=== PATIENT | male | born 1955 | race Caucasian/White ===

== ENCOUNTER 2022-04-22 14:11 | Emergency (ER) | payer BC ==
[2022-04-22 15:10] LABS: Absolute Lymphocytes (CBC) 3.4 K/uL (0.7-4.9); Hematocrit 48.4 % (39.6-49.0); Lymphocytes % 34.7 % (15.3-44.8); MCV 79.9 fL (80-100); MPV 8.6 fL (7.6-11.3); RBC Red Blood Cell Count 6.06 M/uL (4.33-5.43)
[2022-04-22 15:24] LABS: Potassium 4.4 mmol/L (3.5-5.1); Troponin High Sensitivity 5.5 pg/mL (<58.9)
--- NOTE | 2022-04-22 16:16 | RAD REPORT ---
EXAM DESCRIPTION: Nelly Single View04/22/2022 4:04 pm CLINICAL HISTORY: Palpitations COMPARISON: none FINDINGS: The lungs appear clear of acute infiltrate. The heart is normal size IMPRESSION: No acute abnormalities displayed
--- NOTE | 2022-04-22 17:47 | RAD REPORT ---
EXAM DESCRIPTION: CT - Head Brain Wo Cont - 04/22/2022 5:39 pm CLINICAL HISTORY: aphasia COMPARISON: None TECHNIQUE: Computed axial tomography of the head was obtained. IV contrast was not requested. All CT scans are performed using dose optimization technique as appropriate and may include automated exposure control or mA/KV adjustment according to patient size. FINDINGS: An intracranial bleed is not seen . The ventricles are normal in caliber. No extra-axial fluid collection is noted. Moderate to lower area of low density is present within predominantly the left occipital lobe white m atter. This extends into the left temporal lobe and left internal capsule. Shift of midline structure s 2 millimeters towards the right. Fluid within the sinuses/ mastoids is not seen. IMPRESSION: Moderate to large low-density area within the the white-matter left cerebrum. The patien t most likely has mass with surrounding vasogenic edema. It is recommended that the patient have an M RI with contrast for further evaluation
[2022-04-22] MEDS ORDERED: LEVETIRACETAM 500 MG/5 ML VIAL IV ONE (18:18)
[2022-04-22] MEDS ORDERED: NA CHLORIDE 0.9% 100 ML ONE (18:19)
[2022-04-22] MEDS ORDERED: dexAMETHasone 10 MG/ML VIAL ONE (18:19)
--- NOTE | 2022-04-22 18:25 | EDPHYS ---
Physician Documentation [facility] Name: Juan Paris Age: 66 yrs Sex: Male : 1955 Arrival Date: 04/22/2022 Time: 14:14 Bed 6 Private MD: ED Physician Roger Carreno HPI: 04/22 18:26 This 66 yrs old Male presents to ER via Ambulatory with complaints of S/S of Possible kdr Stroke. 18:26 The patient's problem is reported as . kdr 18:33 Onset: The symptoms/episode began/occurred Patient has had intermittent and transient kdr expressive aphasia for the past couple of months. Over the last several days the patient states that he has had difficulty expressing himself and today when he was bringing this to his 's attention he also noted that he had been unable to find words or understand words that he was reading. When the heard this information she brought the patient directly to the ED.. 18:39 Duration: The episodes are intermittent. Context: the episode(s) was witnessed, by kdr family, , occurred at home, occurred while the patient was at rest. The symptoms are alleviated by nothing. The symptoms are aggravated by nothing. Associated signs and symptoms: The patient has no apparent associated signs or symptoms. Severity of symptoms: At their worst the symptoms were mild moderate just prior to arrival, in the emergency department the symptoms have improved mildly, Patient was able to slowly read text correctly but it took him a few seconds and at times he kind of stumbled over the words. Patient's baseline: Neuro: alert and fully oriented, Motor: no deficits, Ambulation: walks without assistance, Speech: normal, normal for age, The patient has a previous history of Palpitations. The patient has not experienced similar symptoms in the past. The patient has not recently seen a physician. Historical: - Allergies: 14:25 Rocephin; hb - Home Meds: 14:25 Metoprolol Tartrate Oral as needed for Palpitations [Active]; hb - PMHx: 14:25 Sleep apnea; hb - PSHx: 14:25 None; hb - Immunization history:: Adult Immunizations up to date. - Social history:: Smoking status: Patient denies any tobacco usage or history of. ROS: 18:39 Constitutional: Negative for fever, chills, and weight loss, Eyes: Negative for injury, kdr pain, redness, and discharge, ENT: Negative for injury, pain, and discharge, Neck: Negative for injury, pain, and swelling, Cardiovascular: Negative for chest pain, palpitations, and edema, Respiratory: Negative for shortness of breath, cough, wheezing, and pleuritic chest pain, Abdomen/GI: Negative for abdominal pain, nausea, vomiting, diarrhea, and constipation, Back: Negative for injury and pain, : Negative for injury, bleeding, discharge, and swelling, MS/Extremity: Negative for injury and deformity, Skin: Negative for injury, rash, and discoloration, Psych: Negative for depression, anxiety, suicide ideation, homicidal ideation, and hallucinations, Allergy/Immunology: Negative for hives, rash, and allergies, Endocrine: Negative for neck swelling, polydipsia, polyuria, polyphagia, and marked weight changes, Hematologic/Lymphatic: Negative for swollen nodes, abnormal bleeding, and unusual bruising. 18:39 Neuro: Positive for speech changes, Negative for altered mental status, dizziness, gait disturbance, headache, loss of consciousness, numbness, visual changes, weakness, Patient denies double vision. Exam: 18:39 Radiologist reports: Dr. Guzman via complete the report indicates moderate to large kdr left cerebrum mass with 2 mm shift of midline 18:39 Constitutional: This is a well developed, well nourished patient who is awake, alert, and in no acute distress. Head/Face: Normocephalic, atraumatic. Neck: Trachea midline, no thyromegaly or masses palpated, and no cervical lymphadenopathy. Supple, full range of motion without nuchal rigidity, or vertebral point tenderness. No Meningismus. Chest/axilla: Normal chest wall appearance and motion. Nontender with no deformity. No lesions are appreciated. Cardiovascular: Regular rate and rhythm with a normal S1 and S2. No gallops, murmurs, or rubs. Normal PMI, no JVD. No pulse deficits. Respiratory: Lungs have equal breath sounds bilaterally, clear to auscultation and percussion. No rales, rhonchi or wheezes noted. No increased work of breathing, no retractions or nasal flaring. Abdomen/GI: Soft, non-tender, with normal bowel sounds. No distension or tympany. No guarding or rebound. No evidence of tenderness throughout. Back: No spinal tenderness. No costovertebral tenderness. Full range of motion. Skin: Warm, dry with normal turgor. Normal color with no rashes, no lesions, and no evidence of cellulitis. MS/ Extremity: Pulses equal, no cyanosis. Neurovascular intact. Full, normal range of motion. Neuro: Awake and alert, GCS 15, oriented to person, place, time, and situation. Cranial nerves II-XII grossly intact. Motor strength 5/5 in all extremities. Sensory grossly intact. Cerebellar exam normal. Normal gait. Psych: Awake, alert, with orientation to person, place and time. Behavior, mood, and affect are within normal limits. 18:39 Eyes: The patient has slight right eye deviation to the right. He denies double vision.. Vital Signs: 14:21 BP 173 / 92; Pulse 85; Resp 16; Temp 98.3; Pulse Ox 98% on R/A; Weight 127.01 kg; hb Height 6 ft. (182.88 cm); Pain 0/10; 15:55 BP 122 / 85; Pulse 80; Resp 18; Pulse Ox 95% on R/A; ph 17:29 BP 140 / 81; Pulse 79; Resp 18; Pulse Ox 98% on R/A; ph 18:37 BP 154 / 80; Pulse 76; Resp 18; Pulse Ox 98% on R/A; ph 19:22 BP 165 / 98; Pulse 95; Resp 16; Pulse Ox 100% on R/A; jb4 14:21 Body Mass Index 37.97 (127.01 kg, 182.88 cm) hb NIH Stroke Scale Scores: 14:30 NIHSS Score: 1 ph MDM: 18:24 Patient medically screened. kdr 18:39 Data reviewed: vital signs, nurses notes. Consideration of Admission/Observation kdr Patient was admitted/placed on observation. Escalation of care including admission/observation considered. Patient was transferred to higher level of care with neurology and neuro surgical services available. I discussed the case with Dr. Croft locally (neurologist on-call) he recommended Keppra and Decadron. I discussed the case as well with Dr. Comer at [facility]. He asked that we hold the Keppra at this time. The Keppra was not given. Patient did get the Decadron. Patient remained stable in the ED.. Management of patient was discussed with the following: Mortgage Lender: Dr. Croft. I considered the following discharge prescriptions or medication management in the emergency department Steroids. Test considered but Not performed: EKG: EKG done. 04/22 14:55 Order name: Basic Metabolic Panel; Complete Time: 16:43 ss 04/22 14:55 Order name: CBC with Diff; Complete Time: 16:43 ss 04/22 14:55 Order name: Troponin HS; Complete Time: 16:43 ss 04/22 14:55 Order name: XRAY Chest (1 view); Complete Time: 16:43 ss 04/22 16:42 Order name: CT Head Brain wo Cont; Complete Time: 18:07 kdr 04/22 18:11 Order name: SARS RAPID eb 04/22 14:55 Order name: EKG; Complete Time: 14:56 ss 04/22 14:55 Order name: Cardiac monitoring; Complete Time: 14:56 ss 04/22 14:55 Order name: EKG - Nurse/Tech; Complete Time: 14:56 ss 04/22 14:55 Order name: IV Saline Lock; Complete Time: 14:56 ss 04/22 14:55 Order name: Labs collected and sent; Complete Time: 14:56 ss 04/22 14:55 Order name: O2 Per Protocol; Complete Time: 14:56 ss 04/22 14:55 Order name: O2 Sat Monitoring; Complete Time: 14:56 ss Administered Medications: 18:15 Drug: Decadron - Dexamethasone 10 mg Route: IVP; Site: right antecubital; ph 18:36 Follow up: Response: No adverse reaction ph 18:37 Not Given (Physician Discretion): Keppra (levETIRAcetam) 1000 mg IV at calculated rate ph once Disposition Summary: 04/22/22 18:24 Transfer Ordered Transfer Location: [facility] kdr Reason: Higher level of care kdr Condition: Fair kdr Problem: new kdr Symptoms: are unchanged kdr Accepting Physician: Dr. Comer/Dr. Rodarte(04/22/22 20:44) jb4 Diagnosis - Left cerebral mass kdr - Receptive aphasia kdr Forms: - Medication Reconciliation Form kdr - SBAR form kdr NIH Stroke Scale - NIH Stroke Score Date: 04/22/2022 Time: 14:30 Total Score = 1 1a. Level of Consciousness (LOC) - 0(Alert) 1b. Level of Consciousness (LOC) (Month \T\ Age) - 0(Both) 1c. LOC Commands (Open \T\ Closes Eyes/Case Manager) - 0(Both) 2. Best Gaze (Lateral Gaze Paresis) - 0(Normal) 3. Visual Field Loss - 0(No visual loss) 4. Facial Palsy - 0(Normal) 5a. Left Arm: Motor (10-second hold) - 0(No drift) 5b. Right Arm: Motor (10-second hold) - 0(No drift) 6a. Left Leg: Motor (5-second hold - always test supine) - 0(No drift) 6b. Right Leg: Motor (5-second hold - always test supine) - 0(No drift) 7. Limb Ataxia (finger/nose \T\ heel/reyna - test with eyes open) - 0(Absent) 8. Sensory Loss (pinprick arms/legs/face) - 0(Normal) 9. Best Language: Aphasia (description/naming/reading) - 1(Mild to moderate aphasia) 10. Dysarthria (speech clarity - read or repeat words) - 0(Normal) 11. Extinction and Inattention (visual/tactile/auditory/spatial/personal) - 0(No abnormality) Initials: ph Signatures: Dispatcher [employer] EDMS Roger Carreno MD MD kdr Ria Arita RN RN Symone Manuel RN RN Akiko Moralez RN RN Brandan Blunt RN RN jb4 Corrections: (The following items were deleted from the chart) 14:26 14:25 PMHx: None; hb hb 18:25 18:24 Bladder went socks he had kdr kdr 18:33 18:25 Bladder went socks he had kdr kdr 18:39 18:33 Dr. Comer kdr kdr 20:44 18:39 Dr. Comer/Dr. Rodarte kdr jb4
--- NOTE | 2022-04-22 18:25 | ER ---
Nurse's Notes [facility] Name: Juan Paris Age: 66 yrs Sex: Male : 1955 Arrival Date: 04/22/2022 Time: 14:14 Bed 6 Private MD: Diagnosis: Left cerebral mass;Receptive aphasia Presentation: 04/22 14:21 Chief complaint: Patient states: "I have been having word finding problems for a couple hb months, reading comprehension issues for a few days." Takes Metoprolol PRN for palpitations. VAN NEGATIVE. Coronavirus screen: At this time, the client does not indicate any symptoms associated with coronavirus-19. Ebola Screen: No symptoms or risks identified at this time. No acute neurological deficit is noted. Initial Sepsis Screen: Does the patient meet any 2 criteria? No. Patient's initial sepsis screen is negative. Does the patient have a suspected source of infection? No. Patient's initial sepsis screen is negative. Risk Assessment: Do you want to hurt yourself or someone else? Patient reports no desire to harm self or others. Onset of symptoms is unknown. 14:21 Method Of Arrival: Ambulatory hb 14:21 Acuity: NIKKI 3 hb 18:37 Pre-hospital glucose is not applicable to this patient. Triage Assessment: 18:38 The onset of the patients symptoms was more than six hours ago. Stroke Activation: Symptom onset > 6 hours Physician: Stroke Attending; Name: ; Notified At: ; Arrived At: Physician: Chief Stroke Resident; Name: ; Notified At: ; Arrived At: Physician: Stroke Resident; Name: ; Notified At: ; Arrived At: Physician: ED Attending; Name: ; Notified At: ; Arrived At: Physician: ED Resident; Name: ; Notified At: ; Arrived At: Historical: - Allergies: 14:25 Rocephin; hb - Home Meds: 14:25 Metoprolol Tartrate Oral as needed for Palpitations [Active]; hb - PMHx: 14:25 Sleep apnea; hb - PSHx: 14:25 None; hb - Immunization history:: Adult Immunizations up to date. - Social history:: Smoking status: Patient denies any tobacco usage or history of. Screenin:56 [facility] ED Fall Risk Assessment (Adult) History of falling in the last 3 months, ph including since admission No falls in past 3 months (0 pts) Confusion or Disorientation No (0 pts) Intoxicated or Sedated No (0 pts) Impaired Gait No (0 pts) Mobility Assist Device Used No (0 pt) Altered Elimination No (0 pt). Abuse screen: Denies threats or abuse. Denies injuries from another. Nutritional screening: No deficits noted. Tuberculosis screening: No symptoms or risk factors identified. Assessment: 14:30 General: Appears in no apparent distress. comfortable, Behavior is calm, cooperative, ph appropriate for age. Pain: Denies pain. Neuro: Level of Consciousness is awake, alert, obeys commands, Oriented to person, place, time, situation, Cancer Spec are equal bilaterally Moves all extremities. Gait is steady, Speech is normal, Facial symmetry appears normal, Pupils are PERRLA, Reports difficulty speaking and w/ reading comprehension . Cardiovascular: Reports palpitations, Denies chest pain, nausea, shortness of breath, Capillary refill < 3 seconds in bilateral fingers Patient's skin is warm and dry. Respiratory: Airway is patent Respiratory effort is even, unlabored. GI: No signs and/or symptoms were reported involving the gastrointestinal system. Derm: Skin is healthy with good turgor, Skin is pink, warm \\T\\ dry. Musculoskeletal: Circulation, motion, and sensation intact. Range of motion: intact in all extremities. 14:30 VAN Scoring: Arm Drift: Patients demonstrates NO arm weakness. Patient is VAN Negative. ph 15:30 Reassessment: Patient appears in no apparent distress at this time. Patient and/or ph family updated on plan of care and expected duration. Pain level reassessed. Patient is alert, oriented x 3, equal unlabored respirations, skin warm/dry/pink. 16:30 Reassessment: Patient appears in no apparent distress at this time. Patient and/or ph family updated on plan of care and expected duration. Pain level reassessed. Patient is alert, oriented x 3, equal unlabored respirations, skin warm/dry/pink. 17:53 Patient has been NPO before screening. The patient is alert, and able to follow ph commands. The patient does not exhibit slurred or garbled speech. The patient is not exhibiting difficulty speaking. The patient does not exhibit difficulty understanding words. The patient is able to swallow own secretions with no drooling or need for suction. Patient tolerated one teaspoon of water. No drooling, immediate coughing, gurgling, or clearing of the throat was noted. The patient tolerated 90mL of water. No drooling, immediate coughing, gurgling, or clearing of the throat was noted. The patient passed the bedside swallow screening. Oral medications may be given as ordered. Contact Physician for further diet orders. Provider notified of bedside swallow screening results: Roger Carreno MD. TNKase (Tenecteplase) Screening: Contraindications: Patient reports onset of signs and symptoms of stroke greater than 6 hours ago:. 19:22 Reassessment: Patient appears in no apparent distress at this time. Patient and/or jb4 family updated on plan of care and expected duration. Pain level reassessed. Patient is alert, oriented x 3, equal unlabored respirations, skin warm/dry/pink. 19:59 Reassessment: Report called to receiving facility. jb4 20:43 Reassessment: Patient appears in no apparent distress at this time. Patient and/or jb4 family updated on plan of care and expected duration. Pain level reassessed. Patient is alert, oriented x 3, equal unlabored respirations, skin warm/dry/pink. Vital Signs: 14:21 BP 173 / 92; Pulse 85; Resp 16; Temp 98.3; Pulse Ox 98% on R/A; Weight 127.01 kg; hb Height 6 ft. (182.88 cm); Pain 0/10; 15:55 BP 122 / 85; Pulse 80; Resp 18; Pulse Ox 95% on R/A; ph 17:29 BP 140 / 81; Pulse 79; Resp 18; Pulse Ox 98% on R/A; ph 18:37 BP 154 / 80; Pulse 76; Resp 18; Pulse Ox 98% on R/A; ph 19:22 BP 165 / 98; Pulse 95; Resp 16; Pulse Ox 100% on R/A; jb4 14:21 Body Mass Index 37.97 (127.01 kg, 182.88 cm) hb Vitals: 15:55 Cardiac Rhythm Assessment Sinus rhythm. ph NIH Stroke Scale Scores: 14:30 NIHSS Score: 1 ED Course: 14:14 Patient arrived in ED. am2 14:15 Symone Manuel, JACK is Primary Nurse. ph 14:22 Roger Carreno MD is Attending Physician. kdr 14:24 Triage completed. hb 14:26 Arm band placed on. hb 14:30 Patient has correct armband on for positive identification. Bed in low position. Call ph light in reach. Side rails up X 1. Client placed on continuous cardiac and pulse oximetry monitoring. NIBP monitoring applied. 14:56 Initial lab(s) drawn, by me, sent to lab. Inserted saline lock: 20 gauge in right kj1 antecubital area, using aseptic technique. Blood collected. 16:06 XRAY Chest (1 view) In Process Unspecified. EDMS 17:41 CT Head Brain wo Cont In Process Unspecified. EDMS 18:09 initiated a transfer with Kate Juarez from the [facility]. eb 18:[address] Comer the neurologist pond worker for [facility] with Dr. Carreno for eb patient transfer consultation. 18:35 connected the hospitalist pond worker for [facility] with Dr. Carreno for patient eb transfer consultation. 18:37 No provider procedures requiring assistance completed. IV discontinued. ph 18:51 administrative approval given by Kate Juarez. patient has been accepted to [facility] Rm [id number]/ Dr. Rodarte has accepted the patient in transfer/ report to be called to [phone]. Administered Medications: 18:15 Drug: Decadron - Dexamethasone 10 mg Route: IVP; Site: right antecubital; ph 18:36 Follow up: Response: No adverse reaction ph 18:37 Not Given (Physician Discretion): Keppra (levETIRAcetam) 1000 mg IV at calculated rate ph once Medication: 15:56 VIS not applicable for this client. ph Outcome: 18:24 ER care complete, transfer ordered by . kdr 20:43 Transferred by ground EMS to [facility], Transfer form completed. jb4 X-rays sent w/ patient. 20:43 Condition: stable 20:43 Discharge instructions given to patient, family, Instructed on the need for transfer, Demonstrated understanding of instructions. 20:44 Patient left the ED. jb4 NIH Stroke Scale - NIH Stroke Score Date: 04/22/2022 Time: 14:30 Total Score = 1 1a. Level of Consciousness (LOC) - 0(Alert) 1b. Level of Consciousness (LOC) (Month \\T\\ Age) - 0(Both) 1c. LOC Commands (Open \\T\\ Closes Eyes/Assembler Trim) - 0(Both) 2. Best Gaze (Lateral Gaze Paresis) - 0(Normal) 3. Visual Field Loss - 0(No visual loss) 4. Facial Palsy - 0(Normal) 5a. Left Arm: Motor (10-second hold) - 0(No drift) 5b. Right Arm: Motor (10-second hold) - 0(No drift) 6a. Left Leg: Motor (5-second hold - always test supine) - 0(No drift) 6b. Right Leg: Motor (5-second hold - always test supine) - 0(No drift) 7. Limb Ataxia (finger/nose \\T\\ heel/reyna - test with eyes open) - 0(Absent) 8. Sensory Loss (pinprick arms/legs/face) - 0(Normal) 9. Best Language: Aphasia (description/naming/reading) - 1(Mild to moderate aphasia) 10. Dysarthria (speech clarity - read or repeat words) - 0(Normal) 11. Extinction and Inattention (visual/tactile/auditory/spatial/personal) - 0(No abnormality) Initials: ph Signatures: Dispatcher [employer] EDMS Roger Carreno MD MD [facility] Symone Manuel RN RN ph Akiko Moralez, JACK RN Brandan Kaba RN RN jb4 Niharika Interiano Elizabeth eb Jackson, Kandis kj1 Corrections: (The following items were deleted from the chart) 14:26 14:25 PMHx: None; hb hb
[2022-04-22 18:41] LABS: SARS-CoV-2 Antigen Rapid Res Negative (Negative)
[2022-04-22 21:39] VITALS: TEMP 98.3
[2022-04-22 21:48] VITALS: BP 165/98; O2SAT 100
--- NOTE | 2022-04-25 17:06 | EKG ---
Test Date: 2022-04-22 Test Time: 14:39:06 Playground Worker: MICHELL MEASUREMENT RESULTS: Intervals: Rate: 75 NC: 156 QRSD: 102 QT: 366 QTc: 408 Beattie: P: 35 NC: 156 QRS: 56 T: 58 INTERPRETIVE STATEMENTS: Normal sinus rhythm Normal ECG No previous ECG available for comparison Electronically Signed On 04-25-22 16:59:22 HEALTH PROGRAM DIRECTOR by Griffin Espino
== END 2022-04-22 20:44 | disposition short-term general hospital (02) ==
LOC: ER 14:11
DX: G93.89 Other specified disorders of brain (principal); Z20.822 Contact with and (suspected) exposure to COVID-19; Z88.3 Allergy status to other anti-infective agents
CPT/HCPCS: 93005; 85025; 80048; 36415; 84484; 70450; 71045; 96374; 99285; 87811; J1100; J1953